=== PATIENT | female | born 1995 | race Two or more races ===

== ENCOUNTER 2018-03-05 14:45 | Emergency (ER) | payer SELFPAY ==
[~2018-03-05] VITALS: Ht 157.5 cm; Wt 84.8 kg
[2018-03-05 14:51] VITALS: BP 122/80
--- NOTE | 2018-03-05 15:45 | NUR ---
BILLIE Johnson at bedside removing FB.
--- NOTE | 2018-03-05 16:06 | NUR ---
Patient/Caregiver given discharge instructions and they have confirmed that they understand the instructions. Patient ambulatory with steady gait.
== END 2018-03-05 16:05 | disposition home or self-care (01) ==
LOC: ED 15:59
DX: T16.2XXA Foreign body in left ear, initial encounter (principal); X58.XXXA Exposure to other specified factors, initial encounter; Y93.89 Activity, other specified; Y92.89 Other specified places as the place of occurrence of the external cause; Y99.8 Other external cause status
CPT/HCPCS: 69200; 99284